=== PATIENT | female | born 1980 | race Caucasian/White ===

== ENCOUNTER 2024-08-15 18:04 | Emergency (ER) | payer MEDICAID ==
[~2024-08-15] VITALS: Ht 144.8 cm; Wt 56.0 kg
[~2024-08-15 18:04] MED LIST: FERR325T6 PO
[2024-08-15 18:27] VITALS: TEMP 36.7; O2SAT 100
[2024-08-15 19:15] LABS: HEMATOCRIT. 27.9 % (36.0-48.0); HEMOGLOBIN. 8.1 g/dL (12.0-16.0); MEAN PLATELET VOLUME 8.5 fl (7.4-10.4); PLATELET 435 x1000/uL (130-400); RED BLOOD CELL COUNT 4.35 mill/uL (4.2-5.4); RED CELL DISTRIBUTION WIDTH 34.4 % (11.6-14.6)
[2024-08-15 19:24] LABS: CREATININE 0.6 mg/dL (0.6-1.0); UREA NITROGEN BLOOD < 5 mg/dL (9-23)
[2024-08-15 19:32] LABS: EOSINOPHILS % MANUAL 4.0 % (0.0-5.0); LYMPHOCYTES % MANUAL 20.0 % (20.0-60.0); MONOCYTES % MANUAL 7.0 % (2.0-8.0); NEUTROPHILS % MANUAL 69.0 % (45.0-75.0); PLATELET ESTIMATE INCREASED
[2024-08-15 19:56] VITALS: BP 113/59; PULSE 56; RESP 9; O2SAT 97
== END 2024-08-15 20:08 | disposition home or self-care (01) ==
LOC: ER 18:04
DX: N93.8 Other specified abnormal uterine and vaginal bleeding (principal); D64.9 Anemia, unspecified; F10.90 Alcohol use, unspecified, uncomplicated; Z98.890 Other specified postprocedural states; Y90.9 Presence of alcohol in blood, level not specified
CPT/HCPCS: 36415; 80048; 85025; 86850; 86900; 99283